=== PATIENT | male | born 1955 | race Caucasian/White ===

== ENCOUNTER 2022-09-13 11:01 | Day surgery (SDC) | payer MEDICARE, OTHER ==
[2022-09-12 14:29] LABS: EOSINOPHILS # (AUTO) 0.2 X10'3 (0-0.9); MEAN CORPUSCULAR VOLUME 87.1 FL (78-98); PRE OP HEMOGLOBIN 15.6 g/dL (14.0-17.9)
[2022-09-12 14:31] LABS: BASOPHILS # (AUTO) 0.1 X10'3 (0-0.2); BASOPHILS % (AUTO) 0.7 % (0-1); EOSINOPHILS % (AUTO) 2.1 % (0-6); LYMPHOCYTES # (AUTO) 1.9 X10'3 (1.1-4.8); MEAN CORPUSCULAR HEMOGLOBIN 29.2 PG (27.0-31.0); MEAN CORPUSCULAR HGB CONC 33.6 g/dL (33.0-36.5); MEAN PLATELET VOLUME 6.7 FL (7.4-10.4); MONOCYTES # (AUTO) 0.8 X10'3 (0-0.9); MONOCYTES % (AUTO) 9.3 % (2-12); NEUTROPHILS # (AUTO) 5.4 X10'3 (1.8-7.7); NEUTROPHILS % (AUTO) 64.9 % (42-75); PRE OP HEMATOCRIT 46.5 % (42.0-52.0); PRE OP PLATELET COUNT 267 X10'3 (140-440); RED BLOOD COUNT 5.33 X10'6 (4.70-6.10)
[2022-09-12 14:42] LABS: CLARITY,URINE CLEAR (Clear); COLOR,URINE YELLOW (Yellow); GLUCOSE, URINE >=1000 mg/dl (Neg); KETONES,URINE NEGATIVE (Neg); LEUKOCYTE ESTERASE ,URINE NEGATIVE (Neg); NITRITES, URINE NEGATIVE (Neg); OCCULT BLOOD,URINE NEGATIVE (Neg); PROTEIN,URINE NEGATIVE (Neg); UROBILINOGEN,URINE 0.2 E.U/dL (0.2-1.0)
[2022-09-12 14:43] LABS: UA COLLECTION TYPE CLN CATCH MIDSTREAM
[2022-09-12 14:49] LABS: ALBUMIN 3.6 G/DL (3.4-5.0); ALBUMIN/GLOBULIN RATIO 0.8 (1.1-1.5); ALKALINE PHOSPHATASE 111 IU/L (46-116); BLOOD UREA NITROGEN 18 MG/DL (7-18); BUN/CREATININE RATIO 18.9 (10.0-20.0); CALCIUM 9.6 MG/DL (8.5-10.1); CHLORIDE 104 MMOL/L (99-107); CREATININE 0.95 MG/DL (0.60-1.10); PRE OP ALT 29 U/L (30-65); PRE OP ANION GAP 8 (8-16); PRE OP AST 21 U/L (10-37); PRE OP BILIRUB, TOTAL 0.5 MG/DL (0.0-1.0); PRE OP GLUCOSE 140 MG/DL (70-104); PRE OP SODIUM 138 MMOL/L (135-145); TOTAL CARBON DIOXIDE 26.4 MMOL/L (24-32); TOTAL PROTEIN 8.4 G/DL (6.4-8.2); eGFR 80 ML/MIN
[2022-09-12 14:51] LABS: SQUAMOUS EPITHELIAL CELL,UR FEW /LPF (FEW)
[2022-09-12 14:53] LABS: RBC,URINE NONE SEEN /HPF (0-2); WBC,URINE 0-4 /HPF (0-4)
[2022-09-12 14:55] LABS: BACTERIA,URINE NONE SEEN /HPF (Neg)
[2022-09-13] VITALS (13 sets, daily range): BP systolic 128–165; BP diastolic 74–90
[~2022-09-13] VITALS: Ht 174 cm; Wt 93.4 kg
[~2022-09-13 11:01] MED LIST: DOXY-224 PO; EMPA10TA PO; LEVO150T61 PO; LIOT25TA12 PO; MULT-1085 PO; THYR120T2 PO; clindamycin-Cleocin 900mg/D5W 50 ML IV ONE; famotidine 20mg tablet PO ONE; ringers solution, lacted 1,000 ML IV SCH
[2022-09-13] MEDS ORDERED: BUPIVAcaine/PF 2.5mg/ml (0.25%) 10ml vial ONE (14:48)
[2022-09-13] MEDS ORDERED: fentaNYL/PF 50MCG/1 ML 2ML syringe IV PRN ×2 (14:50)
[2022-09-13] MEDS ORDERED: ringers solution, lacted 1,000 ML IV SCH (14:50)
[2022-09-13] MEDS ORDERED: labetalol 20mg/4ml (5mg/ml) syringe IV PRN (14:50)
[2022-09-13] MEDS ORDERED: hydrALAZINE 20mg/ml inj. IV PRN (14:50)
[2022-09-13] MEDS ORDERED: ondansetron/PF 4mg/2ml inj IV PRN (14:50)
[2022-09-13] MEDS ORDERED: sevoflurane 250ml liquid IH ONE (15:41)
[2022-09-13] MEDS ORDERED: glycopyrrolate 0.2mg/ml inj ONE (15:41)
[2022-09-13] MEDS ORDERED: propofol 10mg/ml 20ml vial IV ONE (15:41)
[2022-09-13] MEDS ORDERED: labetalol 20mg/4ml (5mg/ml) syringe IV ONE (15:41)
[2022-09-13] MEDS ORDERED: dexamethasone sod phosphate 10mg/ml inj ONE (15:41)
[2022-09-13] MEDS ORDERED: neostigmine methylsulfate 1 MG/ML 10ml vial ONE (15:41)
[2022-09-13] MEDS ORDERED: midazolam 1 mg/ML 2ml injection ONE (15:49)
[2022-09-13] MEDS ORDERED: propofol inj 20 ML IV ONE (15:57)
[2022-09-13] MEDS ORDERED: LIDOcaine 2% (20mg/ml) 5ml vial ONE (15:58)
[2022-09-13] MEDS ORDERED: ondansetron/PF 4mg/2ml inj ONE (15:58)
[2022-09-13] MEDS ORDERED: fentaNYL/PF 50MCG/1 ML 2ML syringe ONE (15:58)
[2022-09-13] MEDS ORDERED: rocuronium 10mg/ml inj IV ONE (15:58)
--- NOTE | 2022-09-13 16:52 | NUR ---
Received from OR via [facility], accompanied by Anesthesiologist DR MCMANUS and report given by Anesthesiologist AND CUTTER GAS. PT FRANKLYN CHEN'S, DENIES PAIN. ABDOMEN W/3 LAP SITES W/DERMABOND CDI. Addendum: 09/13/22 at 1803 by Ness Cardona RN Amended: Links added.
--- NOTE | 2022-09-13 16:52 | NUR ---
Received from OR via [facility], accompanied by Anesthesiologist DR MCMANUS and report given by Anesthesiologist AND DIRECTOR OF REHABILITATION. PT DROWSY, DENIES PAIN, ABDOMEN W/3 LAP SITES W/DERMABOND CDI. Addendum: 09/13/22 at 1935 by Ness Cardona RN Amended: Links added.
[2022-09-13] MEDS: morphine 4 MG/ML inj SYRINge IV PRN ×2 (17:27→18:04)
[2022-09-13] MEDS ORDERED: HYDROcodone/acetaminophen 10/325mg tab PO ONE (18:50)
--- NOTE | 2022-09-13 19:22 | NUR ---
PT UP AND ABLE TO AMBULATE SAFELY, VOIDED X 1. D/C INSTRUCTIONS GIVEN AND GONE OVER W/PT WHO VERBALIZED UNDERSTANDING. NORCO 10/325 MG GIVEN FOR RIDE HOME. PT D/C TO HOME VIA W/C TO PRIVATE VEHICLE W/O INCIDENT. Addendum: 09/13/22 at 2001 by Ness Cardona RN Amended: Links added.
== END 2022-09-13 19:22 | disposition home or self-care (01) ==
LOC: PAS 11:01
PROVIDERS: ATTEND Surgery
DX: K38.8 Other specified diseases of appendix (principal); K40.30 Unilateral inguinal hernia, with obstruction, without gangrene, not specified as recurrent; E11.9 Type 2 diabetes mellitus without complications; E03.9 Hypothyroidism, unspecified; E66.3 Overweight; Z68.30 Body mass index [BMI] 30.0-30.9, adult; M19.90 Unspecified osteoarthritis, unspecified site; Z79.899 Other long term (current) drug therapy; Z88.1 Allergy status to other antibiotic agents; Z88.0 Allergy status to penicillin; Z88.8 Allergy status to other drugs, medicaments and biological substances
CPT/HCPCS: 36415; 44970; 80053; 81001; 82948; 85025; 93005; J1100; J2250; J2270; J2405; J2704; J2710; J3010; J3490; J7030; J7120; Z7506; Z7508; Z7512; A4215; A4615; A4618; C1758

== ENCOUNTER 2023-02-21 05:22 | Day surgery (SDC) | payer MEDICARE, OTHER ==
[2023-02-19 10:45] LABS: BILIRUBIN,URINE NEGATIVE (Neg); CLARITY,URINE CLEAR (Clear); COLOR,URINE YELLOW (Yellow); GLUCOSE, URINE 500 mg/dl (Neg); KETONES,URINE NEGATIVE (Neg); LEUKOCYTE ESTERASE ,URINE NEGATIVE (Neg); NITRITES, URINE NEGATIVE (Neg); OCCULT BLOOD,URINE NEGATIVE (Neg); PH,URINE 5.5 (4.8-8.0); PROTEIN,URINE NEGATIVE (Neg); UROBILINOGEN,URINE 0.2 E.U/dL (0.2-1.0)
[2023-02-19 10:47] LABS: BASOPHILS % (AUTO) 0.5 % (0-1); EOSINOPHILS # (AUTO) 0.1 X10'3 (0-0.9); EOSINOPHILS % (AUTO) 2.1 % (0-6); LYMPHOCYTES # (AUTO) 1.9 X10'3 (1.1-4.8); LYMPHOCYTES % (AUTO) 27.5 % (21-51); MEAN CORPUSCULAR HEMOGLOBIN 29.7 PG (27.0-31.0); MEAN CORPUSCULAR VOLUME 87.3 FL (78-98); MEAN PLATELET VOLUME 6.6 FL (7.4-10.4); MONOCYTES # (AUTO) 0.5 X10'3 (0-0.9); MONOCYTES % (AUTO) 7.3 % (2-12); NEUTROPHILS # (AUTO) 4.4 X10'3 (1.8-7.7); NEUTROPHILS % (AUTO) 62.6 % (42-75); PRE OP HEMATOCRIT 42.3 % (42.0-52.0); PRE OP HEMOGLOBIN 14.4 g/dL (14.0-17.9); PRE OP PLATELET COUNT 243 X10'3 (140-440); RED BLOOD COUNT 4.84 X10'6 (4.70-6.10); RED CELL DISTRIBUTION WIDTH 14.2 % (11.5-14.5)
[2023-02-19 10:50] LABS: UA COLLECTION TYPE CLN CATCH MIDSTREAM
[2023-02-19 11:02] LABS: ALBUMIN 3.6 G/DL (3.4-5.0); ALBUMIN/GLOBULIN RATIO 0.9 (1.1-1.5); ALKALINE PHOSPHATASE 104 IU/L (46-116); BLOOD UREA NITROGEN 14 MG/DL (7-18); BUN/CREATININE RATIO 15.4 (10.0-20.0); CALCIUM 9.5 MG/DL (8.5-10.1); CHLORIDE 102 MMOL/L (99-107); CREATININE 0.91 MG/DL (0.60-1.10); PRE OP ALT 28 U/L (30-65); PRE OP ANION GAP 7 (8-16); PRE OP AST 17 U/L (10-37); PRE OP BILIRUB, TOTAL 0.4 MG/DL (0.0-1.0); PRE OP GLUCOSE 165 MG/DL (70-104); PRE OP POTASSIUM 4.1 MMOL/L (3.4-5.1); PRE OP SODIUM 137 MMOL/L (135-145); TOTAL PROTEIN 7.7 G/DL (6.4-8.2); eGFR 84 ML/MIN
[~2023-02-21] VITALS: Ht 175.3 cm; Wt 99.8 kg
[2023-02-21] VITALS (13 sets, daily range): BP systolic 118–152; BP diastolic 64–88; PULSE 68–83; RESP 12–22; TEMP 97.7; O2SAT 91–99
[~2023-02-21 05:22] MED LIST changes: +CHOL20004 PO; -DOXY-224 PO; -EMPA10TA PO; +FISH12002 PO; +PIOG30TA71 PO; -clindamycin-Cleocin 900mg/D5W 50 ML IV ONE; -famotidine 20mg tablet PO ONE
[2023-02-21] MEDS ORDERED: famotidine 20mg tablet PO ONE (05:30)
[2023-02-21] MEDS ORDERED: clindamycin-Cleocin 900mg/D5W 50 ML IV ONE (05:30)
[2023-02-21] MEDS ORDERED: BUPIVAcaine/PF 2.5mg/ml (0.25%) 10ml vial ONE (07:03)
[2023-02-21] MEDS ORDERED: sevoflurane 250ml liquid IH ONE (07:30)
[2023-02-21] MEDS ORDERED: midazolam 1 mg/ML 2ml injection ONE (07:38)
[2023-02-21] MEDS ORDERED: fentaNYL/PF 50MCG/1 ML 2ML syringe ONE (07:38)
[2023-02-21] MEDS ORDERED: LIDOcaine 2% (20mg/ml) 5ml vial ONE (07:39)
[2023-02-21] MEDS ORDERED: propofol inj 20 ML IV ONE (07:39)
[2023-02-21] MEDS ORDERED: ondansetron/PF 4mg/2ml inj ONE (07:41)
[2023-02-21] MEDS ORDERED: rocuronium 10mg/ml inj IV ONE (07:41)
[2023-02-21] MEDS ORDERED: dexamethasone sod phosphate 4mg/ml inj. ONE (07:41)
[2023-02-21] MEDS ORDERED: acetaminophen 1,000mg/100ml IV 100 ML IV ONE (07:55)
[2023-02-21] MEDS ORDERED: meperidine/PF 25mg/ml syringe ONE (07:55)
[2023-02-21] MEDS ORDERED: labetalol 20mg/4ml (5mg/ml) syringe IV ONE (08:12)
[2023-02-21] MEDS ORDERED: morphine 2 MG/ML inj. syringe IV PRN (08:25)
[2023-02-21] MEDS ORDERED: morphine 4 MG/ML inj SYRINge IV PRN (08:25)
[2023-02-21] MEDS ORDERED: ringers solution, lacted 1,000 ML IV SCH (08:25)
[2023-02-21] MEDS ORDERED: proCHLORperazine 10 MG/2 ml inj IV PRN (08:25)
[2023-02-21] MEDS ORDERED: ondansetron/PF 4mg/2ml inj IV PRN (08:25)
[2023-02-21] MEDS ORDERED: meperidine/PF 25mg/ml syringe IV PRN ×3 (08:25)
[2023-02-21] MEDS ORDERED: glycopyrrolate 0.2mg/ml inj ONE (08:54)
[2023-02-21] MEDS ORDERED: neostigmine methylsulfate 1 MG/ML 10ml vial ONE (08:54)
--- NOTE | 2023-02-21 09:19 | NUR ---
Received from OR via [facility] , accompanied by Anesthesiologist MIA and report given by Anesthesiolgist. PATIENT WITH 20G PIV IN LEFT UE THAT IS CDI. VSS AT THIS TIME 10L MASK ON WITH 100% SATURATIONS AND HAS 3 ABDOMINAL DRESSINGS THAT ARE CDI. VSS CURRENTLY AND NON VERBAL. (ORAL AIRWAY IN PLACE.) REMOVED 10 MINUTES FOLLOWING ARRIVAL. WILL CONTINUE TO ASSESS AND TREAT NEEDED FOR PAIN. NON VERBAL PAIN OF 0 AT THIS TIME. Addendum: 02/21/23 at 0937 by Eitan Armendariz RN, RN Amended: Links added.
[2023-02-21] MEDS ORDERED: HYDROcodone/acetaminophen 10/325mg tab PO ONE (09:50)
--- NOTE | 2023-02-21 11:19 | NUR ---
ABLE TO SAFELY AMBULATE AND TRANSFER SELF. IV TAKEN OUT WITHOUT ANY COMPLICATIONS. ALL DISCHARGE INSTRUCTIONS COVERED WITH PATIENT AND ALL QUESTIONS ANSWERED. PATIENT TAKEN OUT VIA WHEELCHAIR TO PERSONAL VEHICLE WHERE FAMILY/FRIEND DROVE PATIENT HOME. PATIENT VOIDED AND AMBULATED WITH NO LOB AT THIS TIME. DRESSED AND PATIENT TAKEN HOME WITH - ALL WITHOUT ISSUE. Addendum: 02/21/23 at 1133 by Eitan Armendariz RN, RN Amended: Links added.
== END 2023-02-21 11:19 | disposition home or self-care (01) ==
LOC: PRE-OP 05:22
PROVIDERS: ATTEND Surgery
DX: K40.30 Unilateral inguinal hernia, with obstruction, without gangrene, not specified as recurrent (principal); D17.6 Benign lipomatous neoplasm of spermatic cord; E11.9 Type 2 diabetes mellitus without complications; E66.9 Obesity, unspecified; Z68.32 Body mass index [BMI] 32.0-32.9, adult; E03.9 Hypothyroidism, unspecified; M19.90 Unspecified osteoarthritis, unspecified site; Z98.890 Other specified postprocedural states; Z79.899 Other long term (current) drug therapy; Z88.1 Allergy status to other antibiotic agents; Z88.8 Allergy status to other drugs, medicaments and biological substances; Z88.0 Allergy status to penicillin; Z80.9 Family history of malignant neoplasm, unspecified
CPT/HCPCS: 36415; 49650; 80053; 81003; 82948; 85025; C1781; J0131; J1100; J2175; J2250; J2405; J2704; J2710; J3010; J3490; J7030; J7120; Z7506; Z7508; Z7512; A4215; A4618; C1758